=== PATIENT | male | born 1980 | race Caucasian/White ===

== ENCOUNTER 2019-01-17 10:00 | Emergency (ER) | payer OTHER ==
--- NOTE | 2019-01-17 11:51 | UC ---
HPI Febrile Illness - HPI Summary HPI Summary: 38-year-old male who presents with intermittent fevers over the past week and some body aches and headache. He had an engorged tick approximately 3 weeks ago which he removed. - History of Current Complaint Chief Complaint: UCGeneralIllness Time Seen by Provider: 01/17/19 11:50 Hx Obtained From: Patient Onset/Duration: Started Days Ago Timing: Intermittent - Symptoms started about one week ago. Initial Severity: Mild Current Severity: Moderate Pain Intensity: 2 Aggravating Factors: Nothing Alleviating Factors: OTC Medicine - She has been taking Tylenol for body aches and fever. Associated Signs and Symptoms: Headache, Myalgia Related History: Recent Tick Bite - Patient removed and engorged tick approximately 3 weeks ago. - Allergy/Home Medications Allergies/Adverse Reactions: Allergies Allergy/AdvReac Type Severity Reaction Status Date / Time No Known Allergies Allergy Verified 01/17/19 11:17 Home Medications: Home Medications Ibuprofen 600 mg PO ONCE PRN 01/17/19 [History Confirmed 01/17/19] PMH/Surg Hx/FS Hx/Imm Hx Previously Healthy: Yes - Surgical History Surgical History: Yes Surgery Procedure, Year, and Place: wisdom teeth - Family History Known Family History: Positive: Non-Contributory - Social History Occupation: Works From/At Home Lives: With Family Alcohol Use: Daily Substance Use Type: None Smoking Status (MU): Never Smoked Tobacco Review of Systems All Other Systems Reviewed And Are Negative: Yes Constitutional: Positive: Fever, Chills Skin: Negative: Rash Musculoskeletal: Positive: Myalgia Neurological: Positive: Headache - Not the worst headache of his life. Is Patient Immunocompromised?: No Physical Exam Triage Information Reviewed: Yes Appearance: Well-Appearing, No Pain Distress, Well-Nourished Vital Signs: Initial Vital Signs Temp 98.6 F 01/17/19 11:12 Pulse 99 01/17/19 11:12 Resp 18 01/17/19 11:12 BP 129/86 01/17/19 11:12 Pulse Ox 100 01/17/19 11:12 Vital Signs Reviewed: Yes Eyes: Positive: Conjunctiva Clear ENT: Positive: Hearing grossly normal, Pharynx normal, TMs normal, Uvula midline Neck: Positive: Supple, Nontender, No Lymphadenopathy Respiratory: Positive: Lungs clear, Normal breath sounds, No respiratory distress, No accessory muscle use Cardiovascular: Positive: RRR, No Murmur, Pulses Normal, Brisk Capillary Refill Abdomen Description: Positive: Nontender, No Organomegaly, Soft. Negative: CVA Tenderness (R), CVA Tenderness (L) Bowel Sounds: Positive: Present Male Genital Exam: Positive: Normal Genitalia, Other - Patient does have mild inguinal lymphadenopathy.. Negative: Scrotum Tenderness (R), Scrotum Tenderness (L), Testicular Tenderness (R), Testicular Tenderness (L) Musculoskeletal Exam: Normal Neurological Exam: Normal Psychological Exam: Normal Skin Exam: Normal - No rashes were noted. Course/Dx - Course Course Of Treatment: Because of the history of the engorged tick 3 weeks ago and the patient's symptoms now I am going to draw titers and start treatment for Lyme disease with doxycycline. He is to follow-up with his primary care provider before the prescription is complete in 2 weeks from now. Follow-up sooner if any complications or worsening symptoms. The patient is agreeable to this plan of action. - Diagnoses Provider Diagnosis: Tick bite Discharge ED - Sign-Out/Discharge Documenting (check all that apply): Patient Departure All imaging exams completed and their final reports reviewed: No Studies - Discharge Plan Condition: Fair Disposition: HOME Prescriptions: DOXYcycline CAP(*) [DOXYcycline 100MG CAP(*)] 100 mg PO BID 14 Days #28 cap Patient Education Materials: Lyme Disease (ED) Referrals: Stephanie Dalal [Primary Care Provider] - Additional Instructions: Increase fluids, Tylenol every 4 hours and may alternate with Motrin every 8 hours for fever or pain. No dairy products, antacids, multivitamins 2 hours before you take the doxycycline or 2 hours after you take doxycycline however be sure and take it with food. Definite follow-up with your primary care provider before the prescription is finished and sooner if any worsening of symptoms. - Billing Disposition and Condition Condition: FAIR Disposition: Home
--- NOTE | 2019-01-20 12:44 | UC ---
- Progress Note Progress Note: Patient seen, tested for Lyme and treated with doxycycline TWICE A DAY FOR 14 DAYS. Today, test comes back positive. Call patient to tell him the results of the test. HE SHOULD FOLLOW UP IN 14 DAYS WITH HIS PHYSICIAN. Tarun Kearney MD Course/Dx - Diagnoses Provider Diagnoses: Tick bite Discharge ED - Sign-Out/Discharge Documenting (check all that apply): Post-Discharge Follow Up All imaging exams completed and their final reports reviewed: No Studies - Discharge Plan Condition: Fair Disposition: HOME Prescriptions: DOXYcycline CAP(*) [DOXYcycline 100MG CAP(*)] 100 mg PO BID 14 Days #28 cap Patient Education Materials: Lyme Disease (ED) Referrals: Stephanie Dalal [Primary Care Provider] - Additional Instructions: Increase fluids, Tylenol every 4 hours and may alternate with Motrin every 8 hours for fever or pain. No dairy products, antacids, multivitamins 2 hours before you take the doxycycline or 2 hours after you take doxycycline however be sure and take it with food. Definite follow-up with your primary care provider before the prescription is finished and sooner if any worsening of symptoms. - Billing Disposition and Condition Condition: FAIR Disposition: Home
== END 2019-01-17 12:23 | disposition home or self-care (01) ==
LOC: UCEAST 10:00
DX: T14.8XXA Other injury of unspecified body region, initial encounter (principal); W57.XXXA Bitten or stung by nonvenomous insect and other nonvenomous arthropods, initial encounter; Y92.9 Unspecified place or not applicable; A69.20 Lyme disease, unspecified
CPT/HCPCS: 36415; 86617; 86618; 99202; G0463